=== PATIENT | male | born 1975 | race Two or more races ===

== ENCOUNTER 2016-10-09 07:56 | Emergency (ER) | payer BC ==
--- NOTE | ~2016-10-09 | ER ---
PATIENT'S NAME: [facility] AGE: 41 Y [address] ROOM: [place] [id number] LOCATION: [facility] ADMIT DATE: 10/09/2016 ER/Outpatient Report DISCHARGE DATE: 10/09/2016 FAMILY PHYSICIAN: PHYSICIAN, NO ATTENDING PHYSICIAN: Corey Phelps Time of Arrival: 0756 hours. Time of Evaluation: 0800 hours. CHIEF COMPLAINT: Rectal pain. HISTORY OF PRESENT ILLNESS: The patient is a 41-year-old male who presents to the emergency department today with chief complaint of rectal pain. He reports it has been off and on for about 3 weeks. It comes and goes. It is worse when he eats certain spicy types of food. He has been diagnosed with hemorrhoids in the past. It feels like similar type pain. Denies any medications that he is taking. Denies any fevers or chills. No nausea or vomiting. No diarrhea or constipation. Whenever he contracts his rectum, it hurts. He also reports he has had rash for about 10 days. He was exposed to roseola. He reports that it has greatly improved on his legs. PAST MEDICAL HISTORY: 1. Hemorrhoids. 2. Seasonal allergies. PAST SURGICAL HISTORY: 1. Nose. 2. Hiatal hernia. SOCIAL HISTORY: The patient denies any tobacco use. Reports occasional alcohol use. Denies any illicit drug use. ALLERGIES: NO KNOWN DRUG ALLERGIES. MEDICATIONS: None. PRIMARY CARE DOCTOR: Adalid Bunn MD REVIEW OF SYSTEMS: PATIENT'S NAME: [facility] AGE: 41 Y [address] ROOM: [place] [id number] LOCATION: [facility] ADMIT DATE: 10/09/2016 ER/Outpatient Report DISCHARGE DATE: 10/09/2016 FAMILY PHYSICIAN: PHYSICIAN, MAURISIO ATTENDING PHYSICIAN: Corey Phelps All systems are reviewed by myself are negative with the exception of those discussed in the HPI and past medical history. PHYSICAL EXAMINATION: VITAL SIGNS: Weight 74.2 kg, blood pressure 140/86, pulse 84, respiratory rate 20, temperature 97.8, and oxygen saturation 96% on room air. GENERAL: The patient is a 41-year-old male, well developed, well nourished, in no acute distress at this time. HEENT: Head; normocephalic and atraumatic. Pupils are equal, round, and reactive to light and accommodation. Extraocular motions are intact. Mucous membranes are moist. NECK: Supple. There is no nuchal rigidity. CARDIOVASCULAR: Regular rate and rhythm. No murmurs, rubs, or gallops. LUNGS: Clear to auscultation bilaterally. No wheezes, rales, or rhonchi. ABDOMEN: Soft, nontender, and nondistended. No rebound, rigidity, or guarding. RECTAL: The patient does have some small nonthrombosed hemorrhoids. He does have some pain with evaluation. I see no obvious fissure. SKIN: Warm and dry. The patient does have some erythematous lesions on bilateral lower extremities. There is no evidence of petechiae or purpura. There is no palm or sole involvement. LABORATORY DATA AND IMAGING STUDIES: Labs and X-rays: Occult blood is negative. IMPRESSION: 1. Rectal pain with external hemorrhoids. 2. Rash, not otherwise specified. 3. Initial visit. EMERGENCY DEPARTMENT COURSE: The patient was brought back to the examination room. Seen and evaluated by myself. Laboratory analysis obtained as described above. I have discussed history and physical with the patient. I have written a prescription for Anusol HC. I have also discussed using Metamucil daily. I have asked he follows up with Dr. Bunn in 2 days for re-evaluation. I have asked he calls Gastroenterology and General surgery for appointments for re-evaluation. I have discussed return to care instructions including worsening symptoms or any other concerns to return to the emergency department as soon as possible. The patient is agreeable without further questions at this time. DISPOSITION: The patient was discharged to home in good condition. PATIENT'S NAME: CHRISTIAN SANTIZO [facility] AGE: 41 Y [address] ROOM: [place] [address] LOCATION: [facility] ADMIT DATE: 10/09/2016 ER/Outpatient Report DISCHARGE DATE: 10/09/2016 FAMILY PHYSICIAN: PHYSICIAN, NO ATTENDING PHYSICIAN: Corey Phelps DO STEPHANIE HAND/mariam /[id number] d: 10/09/16 1529 t: 10/14/16 0914, OUTPATIENT REPORT
== END 2016-10-09 09:37 | disposition disaster alternative care site (69) ==
LOC: GMED 07:56
DX: K64.4 Residual hemorrhoidal skin tags (principal); R21 Rash and other nonspecific skin eruption; Z98.890 Other specified postprocedural states; Z87.891 Personal history of nicotine dependence